=== PATIENT | female | born 1990 | race Caucasian/White ===

== ENCOUNTER 2023-06-03 08:00 | Emergency (ER) | payer OTHER ==
[2023-06-03 08:19] VITALS: BMI 31.1
[2023-06-03] MEDS ORDERED: LACTATED RINGERS SOLUTION 1,000 ML/1,000 ML INFUS.BAG IV STA (08:34)
[2023-06-03] MEDS ORDERED: FAMOTIDINE 20 MG/50 ML IVPB 20 MG/50 ML MG IVPB ONE ×2 (08:44→08:55)
[2023-06-03] MEDS ORDERED: morphine CARPU-JECT 4 MG/1 ML DISP.SYRIN IVPUSH ONE ×2 (08:44→10:42)
[2023-06-03] MEDS ORDERED: SIMETHICONE 80 MG TAB.CHEW (FP) PO ONE (08:52)
[2023-06-03] MEDS ORDERED: morphine SULFATE 4 MG/ML VIAL ONE ×2 (08:54→10:44)
[2023-06-03 09:47] LABS: BASO % 0.2 % (0-2.0); EOS % 0.3 % (0-4.5); HEMATOCRIT 38.1 % (32.4-45.2); HEMOGLOBIN 12.6 GM/dL (10.7-15.3); LYMPH % 13.4 % (8-40); MCH 29.8 pg (25.7-33.7); MCHC 33.2 g/dl (32.0-36.0); MEAN CELL VOLUME 89.7 fl (80-96); MEAN PLT VOLUME 8.5 fl (7.5-11.1); MONO % 6.9 % (3.8-10.2); NEUT % 79.2 % (42.8-82.8); PLATELET COUNT 299 10^3/uL (134-434); RBC 4.25 M/mm3 (3.60-5.2); RDW 12.8 % (11.6-15.6); WHITE BLOOD COUNT 13.2 K/mm3 (4.0-10.0)
[2023-06-03 09:49] LABS: PH,URINE 5.5 (5.0-8.0); URINE APPEARANCE CLEAR; URINE BILIRUBIN NEGATIVE (NEGATIVE); URINE COLOR YELLOW; URINE GLUCOSE (UA) NEGATIVE (NEGATIVE); URINE KETONE NEGATIVE (NEGATIVE); URINE LEUK ESTERASE NEGATIVE (NEGATIVE); URINE NITRITE NEGATIVE (NEGATIVE); URINE PROTEIN NEGATIVE (NEGATIVE); URINE UROBILINOGEN 0.2 mg/dL (0.2-1.0)
[2023-06-03] MEDS ORDERED: SIMETHICONE 80 MG TAB.CHEW (FP) ONE (09:52)
[2023-06-03 09:53] LABS: HCG,QUALITATIVE URINE Negative
[2023-06-03 09:55] LABS: INR 0.9 (0.83-1.09); PROTHROMBIN TIME (PATIENT) 10.5 SEC (9.7-13.0)
[2023-06-03 09:58] LABS: ACTIVATED PTT 29.1 SECONDS (25.2-36.5)
[2023-06-03 10:07] LABS: POTASSIUM 4.1 mmol/L (3.5-5.1)
[2023-06-03 10:08] LABS: ALBUMIN 3.4 g/dl (3.4-5.0); BLOOD UREA NITROGEN 11.4 mg/dL (7-18); CALCIUM 9.2 mg/dL (8.5-10.1); MAGNESIUM 1.9 mg/dL (1.8-2.4)
[2023-06-03 10:11] LABS: CREATININE 0.7 mg/dL (0.55-1.3)
[2023-06-03 10:13] LABS: BILIRUBIN,TOTAL 0.2 mg/dL (0.2-1); TOT PROT 6.8 g/dl (6.4-8.2)
[2023-06-03 10:57] LABS: VENOUS BASE EXCESS -3.3 mmol/L (-2-2); VENOUS O2 SATURATION 88.6 % (70-80); VENOUS PCO2 33.6 mmHg (38-52); VENOUS PH 7.405 (7.310-7.410)
[2023-06-03 15:31] VITALS: BP 111/54; PULSE 78; RESP 18; TEMP 98.9
[2023-06-03] MEDS ORDERED: ACETAMINOPHEN 325 MG TABLET (FP) PO ONE (15:42)
[2023-06-03] MEDS ORDERED: ACETAMINOPHEN 325 MG TABLET (FP) ONE (16:15)
== END 2023-06-03 17:33 | disposition home or self-care (01) ==
LOC: JER 08:00
PROC: 3E033GC Introduction of Other Therapeutic Substance into Peripheral Vein, Percutaneous Approach (ICD-10-PCS; principal; 2023-06-03)
PROC: 3E033GC Introduction of Other Therapeutic Substance into Peripheral Vein, Percutaneous Approach (ICD-10-PCS; 2023-06-03)
PROC: 3E033GC Introduction of Other Therapeutic Substance into Peripheral Vein, Percutaneous Approach (ICD-10-PCS; 2023-06-03)
DX: S00.93XA Contusion of unspecified part of head, initial encounter (principal); N83.292 Other ovarian cyst, left side; R10.30 Lower abdominal pain, unspecified; R11.0 Nausea; X58.XXXA Exposure to other specified factors, initial encounter
CPT/HCPCS: 0241U-QW; 36415; 70450-TC; 71045-TC-FY; 72125-TC; 74177-TC; 76830-TC; 80053; 81003; 82803; 83690; 83735; 84703; 85025; 85610; 85730; 87086; 93005; 93010; 99285-25; Q9967

== ENCOUNTER 2023-12-24 04:09 | Emergency (ER) | payer OTHER ==
[2023-12-24 04:18] VITALS: BP 108/72; PULSE 92; RESP 20; TEMP 98.9; BMI 32.4
[2023-12-24] MEDS ORDERED: ACETAMINOPHEN 325 MG TABLET (FP) ONE (04:33)
[2023-12-24] MEDS: ACETAMINOPHEN 500 MG TABLET (FP) PO ONE (04:34)
[2023-12-24] MEDS ORDERED: LIDOCAINE 2.5%/PRILOCAINE 2.5% (5 Gram/TUBE) TP ONE (06:04)
[2023-12-24] MEDS ORDERED: DIPHTH,PERTUSS(ACELL),TET 0.5 ML DISP.SYRIN IM ONE (06:04)
[2023-12-24] MEDS: DIPHTH,PERTUSS(ACELL),TET 0.5 ML DISP.SYRIN IM ONE (06:10)
[2023-12-24] MEDS: LIDOCAINE 2.5%/PRILOCAINE 2.5% 30 GRAM TUBE TP ONE (06:11)
[2023-12-24] MEDS ORDERED: LIDOCAINE 1%/EPI 1:100000 (20 ML MULTI DOSE VIAL) ONE (06:29)
[2023-12-24] MEDS: LIDOCAINE 1%/EPI 1:100000 (20 ML MULTI DOSE VIAL) IJ ONE (06:29)
== END 2023-12-24 07:44 | disposition home or self-care (01) ==
LOC: JER 04:09
PROC: 0SQ Lower Joints, Repair (ICD-10-PCS; principal; 2023-12-24)
PROC: 3E0234Z Introduction of Serum, Toxoid and Vaccine into Muscle, Percutaneous Approach (ICD-10-PCS; 2023-12-24)
DX: S71.012A Laceration without foreign body, left hip, initial encounter (principal); S59.912A Unspecified injury of left forearm, initial encounter; T74.11XA Adult physical abuse, confirmed, initial encounter; Y04.8XXA Assault by other bodily force, initial encounter; Z23 Encounter for immunization
CPT/HCPCS: 12002-25; 73090-TC-LT-FY; 73502-TC-RT-FY; 73552-TC-RT-FY; 90471; 90715; 99284-25